=== PATIENT | female | born 1940 | race Caucasian/White ===

== ENCOUNTER 2019-11-10 14:58 | Inpatient (IN) ==
[2019-11-10] MEDS ORDERED: DEXTROSE 50% 25 GM/50 ML VIAL IV PRN (17:59)
[2019-11-10] MEDS ORDERED: ONDANSETRON 4 MG/2 ML VIAL IV PRN (17:59)
[2019-11-10] MEDS ORDERED: GLUCAGON 1 MG VIAL IM PRN (17:59)
[2019-11-10] MEDS ORDERED: SODIUM CHLORIDE 0.9% 1,000 ML IV PRN (18:01)
[2019-11-10] MEDS: SODIUM CHLORIDE 0.9% 1,000 ML IV SCH (18:40)
[2019-11-10 18:55] LABS: Basophils # 0.1 10*3/uL (0.0-0.2); Basophils % 0.1 % (0.0-0.8); Eosinophils # 0.1 10*3/uL (0.0-0.87); Eosinophils % 0.1 % (0.00-10.9); Hematocrit 25.2 VOL% (35.7-47.0); Hemoglobin 7.2 GM/DL (12.0-16.0); Immature Granulocytes % 0.4 %; Lymphocytes # 84.1 10*3/uL (1.4-4.0); Lymphocytes % 87.5 % (21.3-54.2); Mean Corpuscular HGB Conc 28.6 GM/DL (32-36); Mean Corpuscular Volume 94.7 FL (87-102); Mean Platelet Volume 12.4 FL (9.6-12.0); Monocytes % 2.1 % (1.7-12.7); Neutrophils % 9.8 % (38.7-73.9); Platelet Count 275 T/CUMM (130-400); Red Blood Count 2.66 MC/CUMM (3.8-5.5); Red Cell Distribution Width 16.5 % (9.3-17.3)
[2019-11-10 19:01] LABS: White Blood Count 96.1 T/CUMM (4-12)
[2019-11-10 19:12] LABS: Partial Thromboplastin Time 25.7 SECS (23.9-33.8)
[2019-11-10 20:07] LABS: Anisocytosis Slight; Lymphocytes 83 % (20-55); Segmented Neutrophils 14 % (50-85); Target Cells Few; Total Cells Counted 100
[2019-11-10 20:08] LABS: Burr Cells Few; Schistocytes Few
[2019-11-10 20:09] LABS: Platelet Estimate Adequate
[2019-11-10 20:12] LABS: Smudge Cells 3+
[2019-11-10 20:17] LABS: Reactive Lymphocytes 1+
[2019-11-10 20:18] LABS: Atypical Lymphocytes 1+
[2019-11-10] MEDS: INSULIN REGULAR 100 UNIT/ML SUBCUT SCH (21:52)
[2019-11-10] MEDS: PANTOPRAZOLE 40 MG VIAL IV SCH (21:57)
[2019-11-11] MEDS: SODIUM CHLORIDE 0.9% 1,000 ML IV SCH ×3 (03:28→12:49)
[2019-11-11 05:36] LABS: Basophils # 0.1 10*3/uL (0.0-0.2); Basophils % 0.1 % (0.0-0.8); Eosinophils # 0.3 10*3/uL (0.0-0.87); Eosinophils % 0.4 % (0.00-10.9); Hematocrit 26.2 VOL% (35.7-47.0); Immature Granulocytes % 0.3 %; Immature Granulocytes Absolute 0.23 #; Lymphocytes # 74.6 10*3/uL (1.4-4.0); Lymphocytes % 89.2 % (21.3-54.2); Mean Corpuscular HGB Conc 30.5 GM/DL (32-36); Mean Corpuscular Volume 91.3 FL (87-102); Mean Platelet Volume 12.1 FL (9.6-12.0); Monocytes % 2.2 % (1.7-12.7); Neutrophils % 7.8 % (38.7-73.9); Platelet Count 289 T/CUMM (130-400); Red Blood Count 2.87 MC/CUMM (3.8-5.5); Red Cell Distribution Width 16.6 % (9.3-17.3)
[2019-11-11 05:38] LABS: White Blood Count 83.7 T/CUMM (4-12)
[2019-11-11 06:35] LABS: Anisocytosis 2+; Band Neutrophils 2 % (0-10); Eosinophils 2 % (0-10); Lymphocytes 61 % (20-55); Ovalocytes Few; Platelet Estimate Normal; Segmented Neutrophils 30 % (50-85); Smudge Cells 4+; Total Cells Counted 100
[2019-11-11 06:36] LABS: Hypochromasia 1+; Macrocytosis Slight
[2019-11-11] MEDS: INSULIN REGULAR 100 UNIT/ML SUBCUT SCH ×4 (08:11→21:47)
[2019-11-11] MEDS ORDERED: propofoL 200 MG/20 ML VIAL IV ONE (09:00)
[2019-11-11] MEDS ORDERED: LIDOCAINE 100 MG/5 ML SYRINGE ONE (09:00)
[2019-11-11] MEDS: PANTOPRAZOLE 40 MG VIAL IV SCH ×2 (09:05→21:41)
[2019-11-11] MEDS ORDERED: MELATONIN 3 MG TABLET PO PRN (10:18)
[2019-11-11 12:08] LABS: Hematocrit 27.6 VOL% (35.7-47.0); Hemoglobin 8.3 GM/DL (12.0-16.0)
[2019-11-11] MEDS: MEMANTINE 5 MG TABLET PO SCH (12:11)
[2019-11-11] MEDS: ROSUVASTATIN 10 MG TABLET PO SCH (12:11)
[2019-11-11] MEDS: METOPROLOL TARTRATE 50 MG TABLET PO SCH ×2 (12:11→21:45)
[2019-11-11] MEDS: DONEPEZIL 10 MG TABLET PO SCH (12:11)
[2019-11-11] MEDS: metFORMIN 500 MG TABLET PO SCH ×2 (12:11→21:44)
[2019-11-11] MEDS: LEVOTHYROXINE 125 MCG TABLET PO SCH (12:11)
[2019-11-11] MEDS: GABAPENTIN 300 MG CAPSULE PO SCH ×2 (16:50→21:44)
[2019-11-11] MEDS: TEMAZEPAM 15 MG CAPSULE PO SCH (21:44)
[2019-11-12] MEDS: ACETAMINOPHEN 325 MG TABLET PO PRN ×2 (01:18→18:44)
[2019-11-12 05:36] LABS: Basophils # 0.1 10*3/uL (0.0-0.2); Basophils % 0.1 % (0.0-0.8); Eosinophils # 0.7 10*3/uL (0.0-0.87); Eosinophils % 0.8 % (0.00-10.9); Hematocrit 25.8 VOL% (35.7-47.0); Hemoglobin 7.7 GM/DL (12.0-16.0); Immature Granulocytes % 0.2 %; Immature Granulocytes Absolute 0.17 #; Lymphocytes # 75.1 10*3/uL (1.4-4.0); Lymphocytes % 91.6 % (21.3-54.2); Mean Corpuscular HGB Conc 29.8 GM/DL (32-36); Mean Corpuscular Volume 93.5 FL (87-102); Mean Platelet Volume 12.4 FL (9.6-12.0); Neutrophils % 5.3 % (38.7-73.9); Platelet Count 307 T/CUMM (130-400); Red Blood Count 2.76 MC/CUMM (3.8-5.5); Red Cell Distribution Width 17.3 % (9.3-17.3)
[2019-11-12] MEDS: LEVOTHYROXINE 125 MCG TABLET PO SCH (06:00)
[2019-11-12 06:14] LABS: Calcium 8.7 MG/DL (8.5-10.1); Osmolality,Calculated 283.3 MOS/KG (273-304)
[2019-11-12] MEDS: INSULIN REGULAR 100 UNIT/ML SUBCUT SCH ×4 (08:42→20:32)
[2019-11-12] MEDS: GABAPENTIN 300 MG CAPSULE PO SCH ×3 (09:52→21:03)
[2019-11-12] MEDS: METOPROLOL TARTRATE 50 MG TABLET PO SCH (09:52)
[2019-11-12] MEDS: ROSUVASTATIN 10 MG TABLET PO SCH (09:52)
[2019-11-12] MEDS: DONEPEZIL 10 MG TABLET PO SCH (09:53)
[2019-11-12] MEDS: MEMANTINE 5 MG TABLET PO SCH (09:53)
[2019-11-12] MEDS: metFORMIN 500 MG TABLET PO SCH ×2 (09:53→21:03)
[2019-11-12] MEDS: PANTOPRAZOLE 40 MG VIAL IV SCH ×2 (09:54→21:04)
[2019-11-12] MEDS ORDERED: SODIUM CHLORIDE 0.9% 1,000 ML IV PRN (10:44)
[2019-11-12 11:39] LABS: Elliptocytes 2+; Lymphocytes 79 % (20-55); Segmented Neutrophils 20 % (50-85); Total Cells Counted 100
[2019-11-12 11:40] LABS: Macrocytosis 1+; Microcytosis 2+; Platelet Estimate Adequate; Smudge Cells 3+
[2019-11-12] MEDS ORDERED: GLUCAGON 1 MG VIAL IV ONE ×2 (14:45→15:30)
[2019-11-12] MEDS ORDERED: MAGNESIUM SULF RIDER 2 GM in PREMIX 1 EACH IV ONE (14:49)
[2019-11-12] MEDS ORDERED: ATROPINE 1 MG/10 ML SYRINGE IV ONE (14:56)
[2019-11-12] MEDS ORDERED: ATROPINE 1 MG/10 ML SYRINGE IV PRN (14:57)
[2019-11-12] MEDS: LACTATED RINGERS 1,000 ML IV SCH ×2 (15:40→15:41)
[2019-11-12] MEDS: SODIUM CHLORIDE 0.9% 1,000 ML IV SCH (15:41)
[2019-11-12 15:53] LABS: Hematocrit 27.5 VOL% (35.7-47.0); Hemoglobin 8.4 GM/DL (12.0-16.0)
[2019-11-12] MEDS: TEMAZEPAM 15 MG CAPSULE PO SCH (21:03)
[2019-11-13 05:33] LABS: Basophils # 0.1 10*3/uL (0.0-0.2); Basophils % 0.1 % (0.0-0.8); Eosinophils # 0.7 10*3/uL (0.0-0.87); Eosinophils % 0.8 % (0.00-10.9); Hematocrit 29.8 VOL% (35.7-47.0); Hemoglobin 8.9 GM/DL (12.0-16.0); Immature Granulocytes % 0.3 %; Immature Granulocytes Absolute 0.27 #; Lymphocytes # 72.6 10*3/uL (1.4-4.0); Lymphocytes % 88.6 % (21.3-54.2); Mean Corpuscular HGB Conc 29.9 GM/DL (32-36); Mean Corpuscular Volume 92.8 FL (87-102); NRBC # 0.03 10*3/uL; Neutrophils % 8.2 % (38.7-73.9); Platelet Count 300 T/CUMM (130-400); Red Blood Count 3.21 MC/CUMM (3.8-5.5); Red Cell Distribution Width 17.4 % (9.3-17.3)
[2019-11-13] MEDS: LEVOTHYROXINE 125 MCG TABLET PO SCH (06:35)
[2019-11-13] MEDS: INSULIN REGULAR 100 UNIT/ML SUBCUT SCH ×4 (07:52→21:20)
[2019-11-13] MEDS: metFORMIN 500 MG TABLET PO SCH ×2 (08:14→21:19)
[2019-11-13] MEDS: DONEPEZIL 10 MG TABLET PO SCH (08:14)
[2019-11-13] MEDS: GABAPENTIN 300 MG CAPSULE PO SCH ×3 (08:14→21:19)
[2019-11-13] MEDS: ROSUVASTATIN 10 MG TABLET PO SCH (08:14)
[2019-11-13] MEDS: MEMANTINE 5 MG TABLET PO SCH (08:14)
[2019-11-13] MEDS: PANTOPRAZOLE 40 MG VIAL IV SCH ×2 (08:14→21:19)
[2019-11-13 08:38] LABS: Anisocytosis 1+; Atypical Lymphocytes 2+; Lymphocytes 88 % (20-55); Macrocytosis 1+; Platelet Estimate Normal; Reactive Lymphocytes 1+; Segmented Neutrophils 9 % (50-85); Smudge Cells Moderate; Total Cells Counted 100
[2019-11-13] MEDS: TEMAZEPAM 15 MG CAPSULE PO SCH (21:19)
[2019-11-14] MEDS: LEVOTHYROXINE 125 MCG TABLET PO SCH (05:53)
[2019-11-14] MEDS: INSULIN REGULAR 100 UNIT/ML SUBCUT SCH ×2 (07:48→12:12)
[2019-11-14 08:54] LABS: Hematocrit 29.8 VOL% (35.7-47.0); Hemoglobin 9.1 GM/DL (12.0-16.0)
[2019-11-14] MEDS: MEMANTINE 5 MG TABLET PO SCH (09:41)
[2019-11-14] MEDS: DONEPEZIL 10 MG TABLET PO SCH (09:41)
[2019-11-14] MEDS: GABAPENTIN 300 MG CAPSULE PO SCH (09:41)
[2019-11-14] MEDS: ROSUVASTATIN 10 MG TABLET PO SCH (09:41)
[2019-11-14] MEDS: metFORMIN 500 MG TABLET PO SCH (09:41)
[2019-11-14] MEDS: PANTOPRAZOLE 40 MG VIAL IV SCH (09:42)
[2019-11-14 12:12] VITALS: BP 133/55
== END 2019-11-14 13:52 | disposition home health service (06) | DRG 813 ==
LOC: N.3E 17:04 → SUATTDRO 17:04 → N.ICU 11-12 14:45 → N.TELES 11-13 10:17
PROVIDERS: ADMIT Internal Medicine; ATTEND Internal Medicine